=== PATIENT | female | born 1985 | race Two or more races ===

== ENCOUNTER 2021-09-11 10:28 | Outpatient (CLI) | payer OTHER | END 2021-09-11 23:59 | disposition home or self-care (01) | LOC: LAB 10:28 | PROVIDERS: ATTEND Specialist | DX: Z01.812 Encounter for preprocedural laboratory examination (principal); Z20.822 Contact with and (suspected) exposure to COVID-19 | CPT/HCPCS: C9803; U0003 ==

== ENCOUNTER 2021-09-16 05:30 | Day surgery (SDC) | payer OTHER ==
[~2021-09-16] VITALS: Ht 160 cm; Wt 68.0 kg
[2021-09-16 06:30] VITALS: BP 115/57
[2021-09-16] MEDS ORDERED: FENTANYL PF 250MCG/5ML AMPUL ONE (06:31)
[2021-09-16] MEDS ORDERED: FAMOTIDINE/PF INJ 20 MG/2 ML VIAL IV ONE (06:32)
[2021-09-16] MEDS ORDERED: MIDAZOLAM HCL 2 MG/2ML VIAL ONE (06:32)
[2021-09-16] MEDS ORDERED: LIDOCAINE HCL/MPF 1% 30 ML VIAL IJ ONE (06:34)
[2021-09-16] MEDS ORDERED: methylPREDNISolone ACETATE 80 MG/ML VIAL ONE (06:34)
[2021-09-16] MEDS ORDERED: ANESTHESIA TRAY IN PYXIS 1 EA TRAY MC ONE (06:34)
--- NOTE | 2021-09-16 07:24 | NUR ---
RN ADMITTING NOTE Patient arrived to [facility] at 0545. Patient is A&Ox4 ambulatory at this time. NKA. Lives at home with . Full Code. Initial VS: 115/57, HR 70, temp 98.2, RR 17, O2 sat 99%. Patient is fully vaccinated for covid. RAC #20G IV access established. Consents signed. test and MRSA swab was sent down to lab at 0620. Pupils equal and reactive to light. Can move extremities evenly despite minimal pain and ROM difficulties to L knee. heart rate and rhythm regular. Lung sounds clear. Bowel sounds active x4. Last BM 09/14. Oriented patient to unit protocols, bed controls, call light, remote. Taken down to sx approx. 0640 by transporter in stable condition.
--- NOTE | 2021-09-16 07:37 | NUR ---
RN NOTES PATIENT STILL OUT OF UNIT FOR SURGERY.
[2021-09-16] MEDS ORDERED: HYDROMORPHONE 1 MG/1 ML DISP.SYRIN ONE (07:58)
[2021-09-16] MEDS ORDERED: HYDROCODONE/APAP 5/325MG TABLET PO PRN ×2 (08:30)
--- NOTE | 2021-09-16 08:35 | NUR ---
RN NOTES PATIENT CAME BACK FROM SURGERY AT 0833 . CHRISTOPHER OR NURSE WITH THE PATIENT. PATIENT ALERT AND ORIENTED TIMES 4. NO PAIN NOTED. NO RESPIRATORY DISTRESS NOTED. PATIENT ABLE TO SWALLOW LIQUIDS WITHOUT ANY ISSUES. VITAL SIGNS, WO=945/73, P=62, RR=18, 24=030% RA, T=98.4. ALL NEEDS ATTENDED. BED IN THE LOWEST POSITION AND LOCKED. CALL LIGHT AND TABLE IN REACH. WILL CONTINUE TO MONITOR.
[2021-09-16] MEDS ORDERED: LEVO1TAB PO (08:47)
--- NOTE | 2021-09-16 11:55 | NUR ---
LIME KILN AND RECAUSTICIZING OPERATOR NOTES DISCHARGE PATIENT IN STABLE CONDITION. VITAL SIGNS IN NORMAL RANGES. NO PAIN NOTED. NO DISTRESS NOTED. PATIENT ABLE TO AMBULATE TO BATHROOM WITHOUT ANY ISSUES WITH CRUTCHES AND NON WEIGHT BEARING ON THE LEFT KNEE. ALL THE BELONGINGS ACCOUNTED AND SIGNED FOR. ALL THE DISCHARGE INSTRUCTIONS GIVEN TO THE PATIENT. PATIENT VERBALIZED UNDERSTANDING.( PATIENT WILL VISIT PHYSICIAN IN 7-10 DAYS, IN CASE OF EMERGENCY GO TO THE ER OR CALL 911. REMOVE DRESSING AFTER 48 HOURS. CAN AMBULATE WITHOUT ANY PRESSURE ON THE LEFT LEG.) ID BAND REMOVED. IV SITE REMOVED , COVERED WITH DRY DRESSING, NO BLEEDING NOTED. SISTER AT THE PATIENT'S BED SIDE. WHEELED THE PATIENT TO THE LOBBY, PATIENT'S SISTER DROVE THE PATIENT TO HER HOME. PATIENT LEFT HOSPITAL AT 1155 IN STABLE CONDITION. MD AND CHARGE NURSE AWARE OF THE DISCHARGE.
== END 2021-09-16 18:00 | disposition home or self-care (01) ==
LOC: DS 05:30 → UNDOADMIN 05:31 → MED 05:31 → UNDODISIN 11:45 → DS 18:00
PROVIDERS: ATTEND Specialist
DX: S83.272A Complex tear of lateral meniscus, current injury, left knee, initial encounter (principal); S83.242A Other tear of medial meniscus, current injury, left knee, initial encounter; M94.262 Chondromalacia, left knee; X58.XXXA Exposure to other specified factors, initial encounter; Y93.89 Activity, other specified; Y92.89 Other specified places as the place of occurrence of the external cause; Y99.8 Other external cause status; Z98.890 Other specified postprocedural states; Z79.899 Other long term (current) drug therapy
CPT/HCPCS: 29880; 82962; 84703; 87081; 97116; 97161; 97530; A4217; A6253; J0690; J1040; J1170; J1885; J2250; J2405; J2704; J2765; J3010; J3490 ×3; J7030; G0378